=== PATIENT | male | born 1960 | race Asian ===

== ENCOUNTER 2020-05-19 09:58 | Observation (INO) | payer OTHER, MEDICAID ==
[~2020-05-19] VITALS: Ht 167.6 cm; Wt 55.8 kg
[2020-05-19 10:00] VITALS: BP_SYST 139
--- NOTE | 2020-05-19 10:00 | NUR ---
Placed in room 5 . Placed on pvc monitor, blood pressure machine and pulse oximeter. To gown for exam. Side rails up. Report given to SUGEY Linares.
--- NOTE | 2020-05-19 10:10 | NUR ---
Patient presented to ER C/O CVA symptoms. Patient BIB BLS from [facility]. Patient A&Ox2, responds to instructions, responds verbally with studder and mixed words. Per EMS PT has "CVA synptoms since Tuesday". PT states he has right side weakness, right arm cool to touch, pt moves right arm as directed. PT denies pain, denies N/V/D, pulses bilat to upper and lower extremities.
--- NOTE | 2020-05-19 10:12 | NUR ---
ER Dr. MILLER at bedside examining patient.
--- NOTE | 2020-05-19 10:20 | NUR ---
# 18 gauge angiocath placed to LEFT AC . Use of asceptic technique. Opsite placed over site. Blood return noted. Blood for lab drawn from site. Flushed with 10 cc of normal saline. No evidence of infiltration noted. Patient tolerated well.
--- NOTE | 2020-05-19 10:30 | NUR ---
Patient transported to radiology via wheelchair, accompanied by Staff.
[2020-05-19 10:37] LABS: BASOPHILS % (AUTO) 0.7 % (0.0-2.0); EOSINOPHILS # (AUTO) 0.1 K/uL (0.0-0.4); EOSINOPHILS % (AUTO) 2.6 % (0.0-4.0); HEMATOCRIT 43.4 % (36-54); HEMOGLOBIN 14.8 g/dL (14.0-18.0); LYMPHOCYTES # (AUTO) 1.1 K/uL (1.0-5.5); LYMPHOCYTES % (AUTO) 20.8 % (20.5-51.5); MEAN CORPUSCULAR HEMOGLOBIN 33 pg (27-31); MEAN CORPUSCULAR HGB CONC 34 % (32-36); MEAN CORPUSCULAR VOLUME 97 fL (79.0-98.0); MONOCYTES # (AUTO) 0.4 K/uL (0.0-1.0); MONOCYTES % (AUTO) 7.5 % (1.7-9.3); NEUTROPHILS # (AUTO) 3.7 K/uL (1.8-7.7); NEUTROPHILS % (AUTO) 68.4 % (40.0-70.0); PLATELET COUNT (AUTO) 222 K/uL (130-430); RED BLOOD CELL COUNT(AUTO) 4.49 MIL/uL (4.2-6.2); RED CELL DISTRIBUTION WIDTH 13.4 % (9.0-15.0); WHITE BLOOD COUNT (AUTO) 5.4 K/uL (4.8-10.8)
[2020-05-19 10:51] LABS: CALCIUM 9.1 mg/dL (8.4-11.0); CREATININE 0.83 mg/dL (0.55-1.30); POTASSIUM 4.4 mmol/L (3.5-5.1)
[2020-05-19 10:52] LABS: PROTHROMBIN TIME 10.1 SECS (9.5-12.5)
[2020-05-19 10:56] LABS: ALBUMIN 3.9 g/dL (3.4-4.8); TOTAL BILIRUBIN 0.5 mg/dL (0.0-1.0)
--- NOTE | 2020-05-19 11:57 | NUR ---
ADMIT ORDERS FROM DR. BARRETO
[2020-05-19] MEDS ORDERED: ASPIRIN 81 MG TAB.CHEW PO ONE (12:00)
--- NOTE | 2020-05-19 12:20 | NUR ---
CALL FOR ADMIT BED REQUEST, "[facility] AUTOMOTIVE MAINTENANCE TECHNICIAN ON LUNCH".
--- NOTE | 2020-05-19 12:40 | NUR ---
CALLED FOR ADMIT BED ASSIGNEMENT, REORT GIVEN TO MST ASSORTER LAUNDRY
--- NOTE | 2020-05-19 13:03 | NUR ---
Patient will be admitted to care of DR. BARRETO. Admitted to TELE unit. Will go to room 100A. Belongings list completed. Complete and up to date summary report printed. SBAR report to be given at bedside with opportunity for questions. Transfer to TELE via ACLS protocol. Licensed nurse present. IV present no signs or symptoms of infiltration.
--- NOTE | 2020-05-19 13:22 | NUR ---
CONSULTATION PAGED REASON FOR CONSULTATION:ACUTE CVA WAS CONSULT CALLED?Y PERSON WHO WAS NOTIFIED:GINA CONSULTING PHYSICIAN:CONNIE MILLER JANITORIAL ASSISTANT SPECIALTY:CARDIO JANITORIAL ASSISTANT PHONE NUMBER:[phone] ORDERING PHYSICIAN:VIKY LEAL
[2020-05-19 13:25] VITALS: BP_SYST 135
--- NOTE | 2020-05-19 13:25 | NUR ---
ADMISSION: The patient, ALEX HICKMAN, 59 y/o, M admitted by VIKY BARRETO MD, was given written information regarding hospital policies, unit procedures and contact persons. Patient A & O x4, right arm weakness, primary language [place]an but patient has garbled speech. Valuables were checked and recorded. Patient on room air, stable with no signs of acute distress, IV left AC 18 gauge, without redness or infiltration, patent. Patient on telemetry monitoring, fall precautions, bed in lowest position, given call light and call light demonstration, and bed alarm on.
--- NOTE | 2020-05-19 13:28 | NUR ---
CONSULTATION PAGED REASON FOR CONSULTATION:ACUTE CVA WAS CONSULT CALLED?Y PERSON WHO WAS NOTIFIED:'S PAGER PAGED CONSULTING PHYSICIAN:DAVE HUDSON HYDRAULICS TEACHER SPECIALTY:NEURO HYDRAULICS TEACHER PHONE NUMBER:[phone] ORDERING PHYSICIAN:BRIA LEAL
[2020-05-19 13:30] VITALS: BP_SYST 135
[2020-05-19] MEDS ORDERED: MIRT15TA7 PO (13:31)
[2020-05-19] MEDS ORDERED: BENZ1TAB8 PO (13:31)
[2020-05-19] MEDS ORDERED: LOSA25TA3 PO (13:31)
[2020-05-19] MEDS ORDERED: PROLIX PO (13:31)
--- NOTE | 2020-05-19 15:03 | NUR ---
PHYSICAL THERAPY EVALUATION HAS BEEN COMPLETED. PATIENT AMBULATED X 200 FT. WITHOUT AN ASSISTIVE DEVICE. STEADY GAIT. HE IS SAFE TO AMBULATE WITH NURSING SUPERVISION.
--- NOTE | 2020-05-19 17:01 | NUR ---
CONSULT SPEECH TRENT MILLER FOR FERNANDO ()
--- NOTE | 2020-05-19 18:54 | NUR ---
CLOSING NOTES PATIENT AMBULATED TO THE RESTROOM, STEADY GAIT, ON ROOM AIR, WITHOUT SIGNS OF RESPIRATORY DISTRESS, IV SALINE LOCK, HAD DINNER WELL TOLERATED, NO ASPIRATION NOTED.
--- NOTE | 2020-05-19 19:20 | NUR ---
CHANGE OF SHIFT; endorsed by day shift. no resp. distress. admitted for rt. sided weakness and worsening dysphagia. call light within reach. on fall risk precaution.
[2020-05-19 19:45] VITALS: BP_SYST 132
--- NOTE | 2020-05-19 20:00 | NUR ---
NOTES: pt. awake, alert and oriented when checked. neuro status stable. IV lock on left antecubital. on cardiac cath technician and shows sinus rhythm. noted rt. arm weak, unable to raise it up but the rest of her extremities able to move. denies any pain. on room air, no shortness of breath. VS checked. call light within reach.
[2020-05-19] MEDS: BENZTROPINE MESYLATE 1 MG TABLET PO SCH (21:00)
[2020-05-19] MEDS ORDERED: MIRTAZAPINE 15 MG TABLET PO SCH (21:00)
--- NOTE | 2020-05-19 22:00 | NUR ---
NOTES: no medications due. NIH scale done. no neuro changes. repositioned himself. urinal at bedside.
[2020-05-19 23:30] VITALS: BP_SYST 116
--- NOTE | 2020-05-20 01:46 | NUR ---
NOTES: called pharmacy and talked to Mau, medications was released just about 10 minutes ago, too late to give medications, pt. sleeping at the moment.
--- NOTE | 2020-05-20 04:30 | NUR ---
NOTES: neurostatus unchanged. pt. been sleeping. no distress. call light within reach on fall risk precaution.
--- NOTE | 2020-05-20 06:43 | NUR ---
CLOSING NOTES; condition unchanged. pt. still asleep when checked. neurostatus stable. still rt. arm weakness. for further care and assistance. call light within reach.
--- NOTE | 2020-05-20 07:17 | NUR ---
Nutrition Update Noah Scale 18 noted. Pt admitted for Acute CVA Diet: Mechanical soft BMI: 19.9 kg/m2 RD to follow per nutrition care standards.
--- NOTE | 2020-05-20 07:35 | NUR ---
INITIAL ROUNDS PATIENT SITTING UP IN BED, A& OX4, ON ROOM AIR, WITHOUT RESPIRATORY DISTRESS, WITHOUT PAIN OR DISCOMFORT, IV PATENT WITHOUT REDNESS OR INFILTRATION, RIGHT ARM WEAKNESS, BED IN LOWEST POSITION, BRAKES LOCKED, CALL LIGHT WITHIN REACH, ON FALL, SAFETY AND ASPIRATION PRECAUTIONS.
[2020-05-20 07:55] LABS: ALBUMIN 3.9 g/dL (3.4-4.8); CREATININE 0.74 mg/dL (0.55-1.30); POTASSIUM 4.2 mmol/L (3.5-5.1); THYROID STIMULATING HORMONE 1.1 uIu/mL (0.36-3.74); TOTAL BILIRUBIN 0.7 mg/dL (0.0-1.0)
[2020-05-20 07:56] VITALS: BP_SYST 120
[2020-05-20] MEDS: BENZTROPINE MESYLATE 1 MG TABLET PO SCH (08:51)
[2020-05-20] MEDS ORDERED: ASPIRIN 81 MG TAB.CHEW PO SCH (09:00)
[2020-05-20] MEDS ORDERED: ATORVASTATIN 20 MG TABLET PO SCH (09:00)
[2020-05-20] MEDS ORDERED: LOSARTAN POTASSIUM 25 MG TABLET PO SCH (09:00)
[2020-05-20] MEDS ORDERED: FLUPHENAZINE HCL PO SCH (09:00)
[2020-05-20] MEDS ORDERED: LOSARTAN POTASSIUM 50 MG TABLET (COZAAR) PO SCH (09:00)
--- NOTE | 2020-05-20 11:25 | NUR ---
RADIOLOGY PATIENT TRANSPORTED VIA WHEEL CHAIR BY SPECIAL EDUCATION CASE MANAGER, STABLE ON ROOM AIR FOR MRI.
[2020-05-20 12:45] VITALS: BP_SYST 127
[2020-05-20] MEDS ORDERED: LIP40 PO (14:24)
[2020-05-20] MEDS ORDERED: LOSA50TA3 PO (14:24)
[2020-05-20] MEDS ORDERED: ASPI-1393 PO (14:24)
--- NOTE | 2020-05-20 15:34 | NUR ---
D/C back to B/C: Pt is discharged back to [facility] and [facility] ([phone]) enterprise systems administrator is picking patient up at 5PM. RN aware.
[2020-05-20 16:30] VITALS: BP_SYST 116
[2020-05-20 16:50] VITALS: BP_SYST 116
--- NOTE | 2020-05-20 18:05 | NUR ---
D/C Patient Patient given medication reconciliation form and D/C instructions. Exit Care provided. Patient nodded head to confirm understanding, speech slurred. MD discussed with patient the results and treatment provided. Patient stable, ambulatory with steady gait for discharge to [facility]. Patient in stable condition, on room air, ID band removed. IV catheter removed, intact and dressing applied, no active bleeding. Patient educated on pain and stroke management. All belongings sent with patient.Rosangela Romeo with [facility] arrived at [facility] and received patient.
== END 2020-05-20 17:40 | disposition home or self-care (01) ==
LOC: SED 09:58 → STU 11:55 → OBSVTOIN 11:55 → INTOOBSV 11:55 → STU 12:38
PROVIDERS: ADMIT Internal Medicine Hospice and Palliative Medicine; ATTEND Internal Medicine Hospice and Palliative Medicine
DX: I63.9 Cerebral infarction, unspecified (principal); Z20.822 Contact with and (suspected) exposure to COVID-19; I10 Essential (primary) hypertension; F20.9 Schizophrenia, unspecified; F79 Unspecified intellectual disabilities; F17.200 Nicotine dependence, unspecified, uncomplicated; Z79.899 Other long term (current) drug therapy; Z86.73 Personal history of transient ischemic attack (TIA), and cerebral infarction without residual deficits
CPT/HCPCS: 36415 ×2; 70450; 70551; 71045; 76376; 80053 ×2; 80061; 84443; 84484; 85025; 85610; 85730; 86886; 86900; 86901; 87081; 87426; 93005 ×2; 93306; 93880; 97162; 99285; G0378

== ENCOUNTER 2022-08-20 11:57 | Emergency (ER) | payer OTHER, MEDICAID ==
[~2022-08-20] VITALS: Ht 190.5 cm; Wt 70.3 kg
[~2022-08-20 11:57] MED LIST: ASPI-1393 PO; BENZ1TAB82 PO; FLUP10TA13 PO; LIP40 PO; LOSA50TA3 PO; MIRT-91 PO
[2022-08-20 12:08] VITALS: BP_SYST 134
[2022-08-20] MEDS ORDERED: KETAMINE HCL IN 0.9 % NACL 50 MG/5 ML SYRINGE ONE (12:41)
[2022-08-20] MEDS ORDERED: NACL IV ONE ×2 (12:45)
[2022-08-20] MEDS ORDERED: NS IV ONE ×2 (12:45)
[2022-08-20] MEDS ORDERED: KETAMINE HCL IV ONE ×2 (12:45)
[2022-08-20] MEDS ORDERED: NITR-85 PO (14:39)
[2022-08-20] MEDS ORDERED: IBUP-1971 PO (14:39)
[2022-08-20] MEDS ORDERED: IBUPROFEN 800 MG TABLET PO ONE (14:45)
[2022-08-20] MEDS ORDERED: cefTRIAXone 1 GM in LIDOCAINE 1%, 20 ML MDV 2.1 ML IM ONE (14:45)
[2022-08-20 15:02] LABS: BILIRUBIN,URINE NEGATIVE (NEGATIVE); BLOOD, URINE 3+ (NEGATIVE); COLOR,URINE YELLOW (YELLOW); GLUCOSE,URINE NEGATIVE (NEGATIVE); KETONES,URINE NEGATIVE (NEGATIVE); NITRITE, URINE POSITIVE (NEGATIVE); PH,URINE 6.5 (5.0-8.0); PROTEIN URINE NEGATIVE (NEGATIVE); UROBILINOGEN,URINE 0.2 (0.2-1.0)
[2022-08-20 15:09] LABS: CLARITY/URINE HAZY (CLEAR); LEUKOCYTE ESTERASE ,URINE 2+ (NEGATIVE)
[2022-08-20 15:10] LABS: BACTERIA,URINE MODERATE /HPF (None Seen); MUCUS,URINE None Seen /LPF (None Seen); RBC,URINE 20-50 /HPF (0-3)
[2022-08-20 15:11] VITALS: BP_SYST 122
== END 2022-08-20 15:24 ==
LOC: SED 11:57
DX: Z46.6 Encounter for fitting and adjustment of urinary device (principal); I10 Essential (primary) hypertension; Z79.899 Other long term (current) drug therapy
CPT/HCPCS: 99284; 96374; 96375; 81000; 87086; 87186; 51702; J0696; J2001